=== PATIENT | male | born 1975 | race Asian ===

== ENCOUNTER 2022-01-06 14:40 | Inpatient (IN) | payer OTHER ==
[2022-01-06 16:01] VITALS: BMI 24.2
[2022-01-06] MEDS ORDERED: BENZOCAINE/MENTHOL (CHLORASEPTIC ) LOZENGE MM PRN (18:06)
[2022-01-06] MEDS ORDERED: chlordiazePOXIDE HCL 25 MG CAPSULE PO PRN (18:06)
[2022-01-06] MEDS ORDERED: BISMUTH SUBSALICYLATE 524 MG/30 ML PO PRN (18:06)
[2022-01-06] MEDS ORDERED: DICYCLOMINE HCL 10 MG CAPSULE PO PRN (18:06)
[2022-01-06] MEDS ORDERED: ACETAMINOPHEN 325 MG TABLET (FP) PO PRN ×2 (18:06)
[2022-01-06] MEDS ORDERED: MAG HYDROX/AL HYDROX/SIMETH 30 ML UNIT-DOSE CUP PO PRN (18:06)
[2022-01-06] MEDS ORDERED: NALOXONE HCL (KLOXXADO) 8 MG SPRAY NS PRN (18:06)
[2022-01-06] MEDS ORDERED: MAGNESIUM CITRATE 300 ML BOTTLE PO PRN (18:06)
[2022-01-06] MEDS ORDERED: IBUPROFEN 400 MG TABLET (FP) PO PRN (18:06)
[2022-01-06] MEDS ORDERED: MAGNESIUM HYDROX 2400MG/30ML ORAL SUSPENSION 30 ML CUP PO PRN (18:06)
[2022-01-06] MEDS ORDERED: LOPERAMIDE HCL 2 MG CAPSULE PO PRN (18:06)
[2022-01-06] MEDS ORDERED: ONDANSETRON *ODT* 4 MG TABLET SL PRN (18:06)
[2022-01-06] MEDS ORDERED: cloNIDine HCL 0.1 MG TABLET PO ONE (18:15)
[2022-01-06] MEDS ORDERED: cloNIDine HCL 0.1 MG TABLET ONE (18:35)
[2022-01-06] MEDS: THIAMINE HCL 100 MG TABLET (FP) PO SCH (22:28)
[2022-01-06] MEDS: MELATONIN 5 MG TABLETS PO SCH (22:28)
[2022-01-06] MEDS: chlordiazePOXIDE HCL 25 MG CAPSULE PO SCH (22:30)
[2022-01-07] MEDS: chlordiazePOXIDE HCL 25 MG CAPSULE PO SCH ×4 (05:19→22:11)
[2022-01-07] MEDS ORDERED: LABETALOL HCL 200 MG TABLET (FP) PO SCH (10:00)
[2022-01-07] MEDS: PRENATAL VITAMINS W/ FOLIC ACID TABLET (FP) PO SCH (10:14)
[2022-01-07] MEDS: METHOCARBAMOL 500 MG TABLET PO PRN ×2 (10:14→22:13)
[2022-01-07] MEDS: LABETALOL HCL 200 MG TABLET (FP) PO SCH ×2 (11:02→22:11)
[2022-01-07] MEDS ORDERED: LOPERAMIDE HCL 2 MG CAPSULE PO ONE (11:02)
[2022-01-07] MEDS: THIAMINE HCL 100 MG TABLET (FP) PO SCH (22:11)
[2022-01-07] MEDS: MELATONIN 5 MG TABLETS PO SCH (22:12)
[2022-01-08] MEDS: chlordiazePOXIDE HCL 25 MG CAPSULE PO SCH ×4 (05:11→22:03)
[2022-01-08] MEDS: PRENATAL VITAMINS W/ FOLIC ACID TABLET (FP) PO SCH (10:03)
[2022-01-08] MEDS: METHOCARBAMOL 500 MG TABLET PO PRN ×2 (10:07→22:12)
[2022-01-08] MEDS: IBUPROFEN 600 MG TABLET (FP) PO PRN (10:07)
[2022-01-08] MEDS: LABETALOL HCL 200 MG TABLET (FP) PO SCH ×2 (11:28→22:04)
[2022-01-08 12:19] LABS: CALCIUM 8.9 mg/dL (8.5-10.1)
[2022-01-08 12:20] LABS: ALBUMIN 3.7 g/dl (3.4-5.0); BLOOD UREA NITROGEN 13.6 mg/dL (7-18)
[2022-01-08 12:23] LABS: CREATININE 0.7 mg/dL (0.55-1.3); HEMATOCRIT 38.6 % (35.4-49); HEMOGLOBIN 12.8 GM/dL (11.7-16.9); MCH 30.7 pg (25.7-33.7); MCHC 33.1 g/dl (32.0-35.9); MEAN CELL VOLUME 92.7 fl (80-96); MEAN PLT VOLUME 8.5 fl (7.5-11.1); PLATELET COUNT 111 10^3/uL (134-434); RBC 4.17 M/mm3 (4.00-5.60); RDW 15.1 % (11.9-15.9); WHITE BLOOD COUNT 4.9 K/mm3 (4.0-10.0)
[2022-01-08 12:24] LABS: BILIRUBIN,TOTAL 0.5 mg/dL (0.2-1); TOT PROT 6.6 g/dl (6.4-8.2)
[2022-01-08] MEDS: THIAMINE HCL 100 MG TABLET (FP) PO SCH (22:01)
[2022-01-08] MEDS: MELATONIN 5 MG TABLETS PO SCH (22:04)
[2022-01-09] MEDS: METHOCARBAMOL 500 MG TABLET PO PRN (05:08)
[2022-01-09] MEDS: chlordiazePOXIDE HCL 10 MG CAPSULE PO SCH ×4 (05:08→22:05)
[2022-01-09] MEDS: PRENATAL VITAMINS W/ FOLIC ACID TABLET (FP) PO SCH (10:05)
[2022-01-09] MEDS: LABETALOL HCL 200 MG TABLET (FP) PO SCH ×2 (10:05→22:05)
[2022-01-09] MEDS: CYCLOBENZAPRINE HCL 10 MG TABLET (FP) PO PRN ×2 (10:08→16:43)
[2022-01-09] MEDS: FOLIC ACID 1 MG TABLET (FP) PO SCH (10:59)
[2022-01-09] MEDS: chlordiazePOXIDE HCL 10 MG CAPSULE PO PRN ×2 (14:00→19:12)
[2022-01-09] MEDS: THIAMINE HCL 100 MG TABLET (FP) PO SCH (22:05)
[2022-01-09] MEDS: MELATONIN 5 MG TABLETS PO SCH (22:06)
[2022-01-10] MEDS: chlordiazePOXIDE HCL 10 MG CAPSULE PO SCH ×2 (05:23→17:21)
[2022-01-10] MEDS: FOLIC ACID 1 MG TABLET (FP) PO SCH (10:13)
[2022-01-10] MEDS: LABETALOL HCL 200 MG TABLET (FP) PO SCH ×2 (10:13→21:00)
[2022-01-10] MEDS: PRENATAL VITAMINS W/ FOLIC ACID TABLET (FP) PO SCH (10:13)
[2022-01-10] MEDS: CYCLOBENZAPRINE HCL 10 MG TABLET (FP) PO PRN ×2 (10:14→21:53)
[2022-01-10] MEDS: IBUPROFEN 600 MG TABLET (FP) PO PRN (10:15)
[2022-01-10] MEDS: MELATONIN 5 MG TABLETS PO SCH (21:53)
[2022-01-10] MEDS: THIAMINE HCL 100 MG TABLET (FP) PO SCH (21:53)
[2022-01-11] MEDS ORDERED: chlordiazePOXIDE HCL 10 MG CAPSULE PO ONE (05:00)
[2022-01-11 05:59] VITALS: RESP 18
[2022-01-11 08:54] VITALS: BP 138/94; PULSE 85; TEMP 96.9
[2022-01-11] MEDS: PRENATAL VITAMINS W/ FOLIC ACID TABLET (FP) PO SCH (10:08)
[2022-01-11] MEDS: CYCLOBENZAPRINE HCL 10 MG TABLET (FP) PO PRN (10:09)
[2022-01-11] MEDS: FOLIC ACID 1 MG TABLET (FP) PO SCH (10:09)
[2022-01-11] MEDS: LABETALOL HCL 200 MG TABLET (FP) PO SCH (10:09)
== END 2022-01-11 11:41 | disposition other institution (70) | DRG 775 ==
LOC: YASAS 14:40 → Y6N 18:49
PROVIDERS: ADMIT Allergy & Immunology; ATTEND Surgery
PROC: HZ2ZZZZ Detoxification Services for Substance Abuse Treatment (ICD-10-PCS; principal; 2022-01-06)
DX: F10.230 Alcohol dependence with withdrawal, uncomplicated (principal); I10 Essential (primary) hypertension; M54.50 Low back pain, unspecified; G89.29 Other chronic pain
CPT/HCPCS: 36415; 80053; 85027; 86780; 93005; 93010; C9803-CS; U0003; U0005

== ENCOUNTER 2022-01-11 11:52 | Inpatient (IN) | payer OTHER ==
[2022-01-11] MEDS ORDERED: MAGNESIUM CITRATE 300 ML BOTTLE PO PRN (13:25)
[2022-01-11] MEDS ORDERED: P-EPHED 60MG/TRIPROLIDI 2.5MG TABLET PO PRN (13:25)
[2022-01-11] MEDS ORDERED: NICOTINE 10 MG CARTRIDGE (INHALER) IH PRN (13:25)
[2022-01-11] MEDS ORDERED: MAGNESIUM HYDROX 2400MG/30ML ORAL SUSPENSION 30 ML CUP PO PRN (13:25)
[2022-01-11] MEDS ORDERED: guaiFENesin 200 MG/10 ML 10 ML UNIT-DOSE CUPS PO PRN (13:25)
[2022-01-11] MEDS ORDERED: ACETAMINOPHEN 325 MG TABLET (FP) PO PRN (13:25)
[2022-01-11] MEDS ORDERED: LOPERAMIDE HCL 2 MG CAPSULE PO PRN (13:25)
[2022-01-11] MEDS ORDERED: NICOTINE POLACRILEX 2 MG GUM BC PRN (13:25)
[2022-01-11] MEDS ORDERED: NICOTINE 7 MG/24 HOURS TOPICAL PATCH TD PRN (13:25)
[2022-01-11] MEDS ORDERED: MAG HYDROX/AL HYDROX/SIMETH 30 ML UNIT-DOSE CUP PO PRN (13:25)
[2022-01-11] MEDS: MELATONIN 5 MG TABLETS PO SCH (21:19)
[2022-01-11] MEDS: THIAMINE HCL 100 MG TABLET (FP) PO SCH (21:19)
[2022-01-11] MEDS: LABETALOL HCL 200 MG TABLET (FP) PO SCH (21:19)
[2022-01-11] MEDS: CYCLOBENZAPRINE HCL 10 MG TABLET (FP) PO PRN (21:19)
[2022-01-12] MEDS: hydrOXYzine PAMOATE 25 MG CAPSULE (FP) PO PRN (06:28)
[2022-01-12] MEDS: IBUPROFEN 400 MG TABLET (FP) PO PRN ×2 (06:28→21:22)
[2022-01-12] MEDS: LABETALOL HCL 200 MG TABLET (FP) PO SCH ×2 (09:50→23:45)
[2022-01-12] MEDS: PRENATAL VITAMINS W/ FOLIC ACID TABLET (FP) PO SCH (09:50)
[2022-01-12] MEDS: MELATONIN 5 MG TABLETS PO SCH (21:21)
[2022-01-12] MEDS: THIAMINE HCL 100 MG TABLET (FP) PO SCH (21:21)
[2022-01-12] MEDS: CYCLOBENZAPRINE HCL 10 MG TABLET (FP) PO PRN (21:22)
[2022-01-13] MEDS: LABETALOL HCL 200 MG TABLET (FP) PO SCH ×2 (10:08→21:22)
[2022-01-13] MEDS: PRENATAL VITAMINS W/ FOLIC ACID TABLET (FP) PO SCH (10:08)
[2022-01-13] MEDS: THIAMINE HCL 100 MG TABLET (FP) PO SCH (21:22)
[2022-01-13] MEDS: MELATONIN 5 MG TABLETS PO SCH (21:22)
[2022-01-14] MEDS: IBUPROFEN 400 MG TABLET (FP) PO PRN (06:15)
[2022-01-14] MEDS: CYCLOBENZAPRINE HCL 10 MG TABLET (FP) PO PRN ×2 (06:16→21:17)
[2022-01-14] MEDS: LABETALOL HCL 200 MG TABLET (FP) PO SCH ×2 (09:31→21:16)
[2022-01-14] MEDS: PRENATAL VITAMINS W/ FOLIC ACID TABLET (FP) PO SCH (09:31)
[2022-01-14] MEDS: MELATONIN 5 MG TABLETS PO SCH (21:16)
[2022-01-14] MEDS: THIAMINE HCL 100 MG TABLET (FP) PO SCH (21:16)
[2022-01-15] MEDS: IBUPROFEN 400 MG TABLET (FP) PO PRN (06:25)
[2022-01-15] MEDS: hydrOXYzine PAMOATE 25 MG CAPSULE (FP) PO PRN ×2 (06:26→23:20)
[2022-01-15] MEDS: PRENATAL VITAMINS W/ FOLIC ACID TABLET (FP) PO SCH (09:50)
[2022-01-15] MEDS: LABETALOL HCL 200 MG TABLET (FP) PO SCH ×2 (09:50→21:09)
[2022-01-15] MEDS: THIAMINE HCL 100 MG TABLET (FP) PO SCH (21:09)
[2022-01-15] MEDS: CYCLOBENZAPRINE HCL 10 MG TABLET (FP) PO PRN (21:09)
[2022-01-15] MEDS: MELATONIN 5 MG TABLETS PO SCH (21:09)
[2022-01-15] MEDS ORDERED: cloNIDine HCL 0.1 MG TABLET PO ONE (23:14)
[2022-01-16] MEDS: IBUPROFEN 400 MG TABLET (FP) PO PRN ×2 (06:19→21:22)
[2022-01-16] MEDS: hydrOXYzine PAMOATE 25 MG CAPSULE (FP) PO PRN ×2 (06:19→21:22)
[2022-01-16] MEDS: PRENATAL VITAMINS W/ FOLIC ACID TABLET (FP) PO SCH (09:57)
[2022-01-16] MEDS: LABETALOL HCL 200 MG TABLET (FP) PO SCH ×2 (09:58→21:21)
[2022-01-16] MEDS: CYCLOBENZAPRINE HCL 10 MG TABLET (FP) PO PRN ×2 (09:59→21:21)
[2022-01-16] MEDS: MELATONIN 5 MG TABLETS PO SCH (21:20)
[2022-01-16] MEDS: THIAMINE HCL 100 MG TABLET (FP) PO SCH (21:20)
[2022-01-17] MEDS: PRENATAL VITAMINS W/ FOLIC ACID TABLET (FP) PO SCH (10:17)
[2022-01-17] MEDS: LABETALOL HCL 200 MG TABLET (FP) PO SCH ×2 (10:17→21:07)
[2022-01-17] MEDS: IBUPROFEN 400 MG TABLET (FP) PO PRN (10:18)
[2022-01-17] MEDS: CYCLOBENZAPRINE HCL 10 MG TABLET (FP) PO PRN (21:07)
[2022-01-17] MEDS: MELATONIN 5 MG TABLETS PO SCH (21:07)
[2022-01-17] MEDS: THIAMINE HCL 100 MG TABLET (FP) PO SCH (21:07)
[2022-01-18] MEDS: hydrOXYzine PAMOATE 25 MG CAPSULE (FP) PO PRN (06:21)
[2022-01-18] MEDS: LABETALOL HCL 200 MG TABLET (FP) PO SCH ×2 (09:43→21:15)
[2022-01-18] MEDS: PRENATAL VITAMINS W/ FOLIC ACID TABLET (FP) PO SCH (09:43)
[2022-01-18] MEDS: IBUPROFEN 400 MG TABLET (FP) PO PRN (09:44)
[2022-01-18] MEDS ORDERED: IBUPROFEN 400 MG TABLET (FP) PO PRN (15:07)
[2022-01-18] MEDS: MELATONIN 5 MG TABLETS PO SCH (21:16)
[2022-01-18] MEDS: CYCLOBENZAPRINE HCL 10 MG TABLET (FP) PO PRN (21:16)
[2022-01-18] MEDS: THIAMINE HCL 100 MG TABLET (FP) PO SCH (21:16)
[2022-01-19] MEDS: IBUPROFEN 400 MG TABLET (FP) PO PRN (06:41)
[2022-01-19] MEDS: hydrOXYzine PAMOATE 25 MG CAPSULE (FP) PO PRN (06:42)
[2022-01-19] MEDS: PRENATAL VITAMINS W/ FOLIC ACID TABLET (FP) PO SCH (10:02)
[2022-01-19] MEDS: LABETALOL HCL 200 MG TABLET (FP) PO SCH ×2 (10:02→21:07)
[2022-01-19] MEDS: CYCLOBENZAPRINE HCL 10 MG TABLET (FP) PO PRN (21:07)
[2022-01-19] MEDS: MELATONIN 5 MG TABLETS PO SCH (21:07)
[2022-01-19] MEDS: THIAMINE HCL 100 MG TABLET (FP) PO SCH (21:07)
[2022-01-20] MEDS: PRENATAL VITAMINS W/ FOLIC ACID TABLET (FP) PO SCH (09:56)
[2022-01-20] MEDS: LABETALOL HCL 200 MG TABLET (FP) PO SCH ×2 (09:56→21:18)
[2022-01-20] MEDS: IBUPROFEN 400 MG TABLET (FP) PO PRN (09:57)
[2022-01-20] MEDS: MELATONIN 5 MG TABLETS PO SCH (21:17)
[2022-01-20] MEDS: THIAMINE HCL 100 MG TABLET (FP) PO SCH (21:17)
[2022-01-20] MEDS: CYCLOBENZAPRINE HCL 10 MG TABLET (FP) PO PRN (21:18)
[2022-01-21] MEDS: PRENATAL VITAMINS W/ FOLIC ACID TABLET (FP) PO SCH (09:35)
[2022-01-21] MEDS: LABETALOL HCL 200 MG TABLET (FP) PO SCH ×2 (09:36→21:20)
[2022-01-21] MEDS: IBUPROFEN 400 MG TABLET (FP) PO PRN ×2 (09:37→21:20)
[2022-01-21] MEDS: THIAMINE HCL 100 MG TABLET (FP) PO SCH (21:19)
[2022-01-21] MEDS: CYCLOBENZAPRINE HCL 10 MG TABLET (FP) PO PRN (21:19)
[2022-01-21] MEDS: MELATONIN 5 MG TABLETS PO SCH (21:19)
[2022-01-22] MEDS: hydrOXYzine PAMOATE 25 MG CAPSULE (FP) PO PRN (06:19)
[2022-01-22] MEDS: LABETALOL HCL 200 MG TABLET (FP) PO SCH ×2 (10:25→21:20)
[2022-01-22] MEDS: PRENATAL VITAMINS W/ FOLIC ACID TABLET (FP) PO SCH (10:25)
[2022-01-22] MEDS: IBUPROFEN 400 MG TABLET (FP) PO PRN ×2 (10:26→21:21)
[2022-01-22] MEDS: MELATONIN 5 MG TABLETS PO SCH (21:20)
[2022-01-22] MEDS: CYCLOBENZAPRINE HCL 10 MG TABLET (FP) PO PRN (21:20)
[2022-01-22] MEDS: THIAMINE HCL 100 MG TABLET (FP) PO SCH (21:20)
[2022-01-23] MEDS: LABETALOL HCL 200 MG TABLET (FP) PO SCH ×2 (10:07→21:05)
[2022-01-23] MEDS: PRENATAL VITAMINS W/ FOLIC ACID TABLET (FP) PO SCH (10:07)
[2022-01-23] MEDS: IBUPROFEN 400 MG TABLET (FP) PO PRN ×2 (10:08→21:05)
[2022-01-23] MEDS: THIAMINE HCL 100 MG TABLET (FP) PO SCH (21:05)
[2022-01-23] MEDS: CYCLOBENZAPRINE HCL 10 MG TABLET (FP) PO PRN (21:05)
[2022-01-23] MEDS: MELATONIN 5 MG TABLETS PO SCH (21:05)
[2022-01-24] MEDS: PRENATAL VITAMINS W/ FOLIC ACID TABLET (FP) PO SCH (10:07)
[2022-01-24] MEDS: IBUPROFEN 400 MG TABLET (FP) PO PRN (10:07)
[2022-01-24] MEDS: LABETALOL HCL 200 MG TABLET (FP) PO SCH (10:07)
[2022-01-24] MEDS: CYCLOBENZAPRINE HCL 10 MG TABLET (FP) PO PRN ×2 (10:09→21:07)
[2022-01-24] MEDS: hydrOXYzine PAMOATE 25 MG CAPSULE (FP) PO PRN (10:09)
[2022-01-24] MEDS: MELATONIN 5 MG TABLETS PO SCH (21:07)
[2022-01-24] MEDS: THIAMINE HCL 100 MG TABLET (FP) PO SCH (21:07)
[2022-01-24] MEDS: LABETALOL HCL 100 MG TABLET (FP) PO SCH (21:07)
[2022-01-25] MEDS: hydrOXYzine PAMOATE 25 MG CAPSULE (FP) PO PRN (06:06)
[2022-01-25] MEDS: PRENATAL VITAMINS W/ FOLIC ACID TABLET (FP) PO SCH (10:06)
[2022-01-25] MEDS: LABETALOL HCL 200 MG TABLET (FP) PO SCH (10:07)
[2022-01-25] MEDS: IBUPROFEN 400 MG TABLET (FP) PO PRN ×2 (10:08→21:06)
[2022-01-25] MEDS: CYCLOBENZAPRINE HCL 10 MG TABLET (FP) PO PRN ×2 (10:08→21:06)
[2022-01-25] MEDS: LABETALOL HCL 100 MG TABLET (FP) PO SCH (21:06)
[2022-01-25] MEDS: MELATONIN 5 MG TABLETS PO SCH (21:06)
[2022-01-25] MEDS: THIAMINE HCL 100 MG TABLET (FP) PO SCH (21:06)
[2022-01-26] MEDS: IBUPROFEN 400 MG TABLET (FP) PO PRN ×2 (06:27→21:06)
[2022-01-26] MEDS: hydrOXYzine PAMOATE 25 MG CAPSULE (FP) PO PRN ×3 (06:27→21:06)
[2022-01-26] MEDS: CYCLOBENZAPRINE HCL 10 MG TABLET (FP) PO PRN ×2 (09:36→21:06)
[2022-01-26] MEDS: LABETALOL HCL 200 MG TABLET (FP) PO SCH (09:36)
[2022-01-26] MEDS: PRENATAL VITAMINS W/ FOLIC ACID TABLET (FP) PO SCH (09:37)
[2022-01-26] MEDS: LABETALOL HCL 100 MG TABLET (FP) PO SCH (21:06)
[2022-01-26] MEDS: MELATONIN 5 MG TABLETS PO SCH (21:06)
[2022-01-26] MEDS: THIAMINE HCL 100 MG TABLET (FP) PO SCH (21:24)
[2022-01-27] MEDS: PRENATAL VITAMINS W/ FOLIC ACID TABLET (FP) PO SCH (10:07)
[2022-01-27] MEDS: LABETALOL HCL 200 MG TABLET (FP) PO SCH (10:08)
[2022-01-27] MEDS: IBUPROFEN 400 MG TABLET (FP) PO PRN ×2 (10:09→21:10)
[2022-01-27] MEDS: hydrOXYzine PAMOATE 25 MG CAPSULE (FP) PO PRN (10:09)
[2022-01-27] MEDS: LABETALOL HCL 100 MG TABLET (FP) PO SCH (21:10)
[2022-01-27] MEDS: THIAMINE HCL 100 MG TABLET (FP) PO SCH (21:11)
[2022-01-27] MEDS: MELATONIN 5 MG TABLETS PO SCH (21:11)
[2022-01-28] MEDS: PRENATAL VITAMINS W/ FOLIC ACID TABLET (FP) PO SCH (09:47)
[2022-01-28] MEDS: LABETALOL HCL 200 MG TABLET (FP) PO SCH (09:48)
[2022-01-28] MEDS: IBUPROFEN 400 MG TABLET (FP) PO PRN ×2 (09:48→21:05)
[2022-01-28] MEDS: CYCLOBENZAPRINE HCL 10 MG TABLET (FP) PO PRN ×2 (09:49→21:05)
[2022-01-28] MEDS: LABETALOL HCL 100 MG TABLET (FP) PO SCH (21:04)
[2022-01-28] MEDS: THIAMINE HCL 100 MG TABLET (FP) PO SCH (21:05)
[2022-01-28] MEDS: MELATONIN 5 MG TABLETS PO SCH (21:05)
[2022-01-29] MEDS: IBUPROFEN 400 MG TABLET (FP) PO PRN (06:13)
[2022-01-29] MEDS: hydrOXYzine PAMOATE 25 MG CAPSULE (FP) PO PRN (06:13)
[2022-01-29] MEDS: CYCLOBENZAPRINE HCL 10 MG TABLET (FP) PO PRN ×2 (09:29→21:03)
[2022-01-29] MEDS: LABETALOL HCL 200 MG TABLET (FP) PO SCH (09:29)
[2022-01-29] MEDS: PRENATAL VITAMINS W/ FOLIC ACID TABLET (FP) PO SCH (09:29)
[2022-01-29] MEDS: GABAPENTIN 100 MG CAPSULE PO SCH ×2 (13:26→21:03)
[2022-01-29] MEDS: MELATONIN 5 MG TABLETS PO SCH (21:03)
[2022-01-29] MEDS: THIAMINE HCL 100 MG TABLET (FP) PO SCH (21:03)
[2022-01-29] MEDS: LABETALOL HCL 100 MG TABLET (FP) PO SCH (21:05)
[2022-01-30] MEDS: GABAPENTIN 100 MG CAPSULE PO SCH ×3 (06:20→21:09)
[2022-01-30] MEDS: hydrOXYzine PAMOATE 25 MG CAPSULE (FP) PO PRN ×2 (06:20→21:09)
[2022-01-30] MEDS: LABETALOL HCL 200 MG TABLET (FP) PO SCH (10:08)
[2022-01-30] MEDS: PRENATAL VITAMINS W/ FOLIC ACID TABLET (FP) PO SCH (10:08)
[2022-01-30] MEDS: CYCLOBENZAPRINE HCL 10 MG TABLET (FP) PO PRN ×2 (10:09→21:09)
[2022-01-30] MEDS: IBUPROFEN 400 MG TABLET (FP) PO PRN ×2 (10:09→21:09)
[2022-01-30] MEDS: LABETALOL HCL 100 MG TABLET (FP) PO SCH (21:08)
[2022-01-30] MEDS: MELATONIN 5 MG TABLETS PO SCH (21:08)
[2022-01-30] MEDS: THIAMINE HCL 100 MG TABLET (FP) PO SCH (21:08)
[2022-01-31] MEDS: GABAPENTIN 100 MG CAPSULE PO SCH ×3 (06:08→21:03)
[2022-01-31] MEDS: IBUPROFEN 400 MG TABLET (FP) PO PRN ×3 (06:08→21:03)
[2022-01-31] MEDS: hydrOXYzine PAMOATE 25 MG CAPSULE (FP) PO PRN ×2 (06:09→21:03)
[2022-01-31] MEDS: PRENATAL VITAMINS W/ FOLIC ACID TABLET (FP) PO SCH (10:01)
[2022-01-31] MEDS: LABETALOL HCL 200 MG TABLET (FP) PO SCH (10:01)
[2022-01-31] MEDS: CYCLOBENZAPRINE HCL 10 MG TABLET (FP) PO PRN ×2 (10:02→21:03)
[2022-01-31] MEDS: MELATONIN 5 MG TABLETS PO SCH (21:03)
[2022-01-31] MEDS: LABETALOL HCL 100 MG TABLET (FP) PO SCH (21:03)
[2022-01-31] MEDS: THIAMINE HCL 100 MG TABLET (FP) PO SCH (21:03)
[2022-02-01] MEDS: IBUPROFEN 400 MG TABLET (FP) PO PRN (05:48)
[2022-02-01] MEDS: hydrOXYzine PAMOATE 25 MG CAPSULE (FP) PO PRN (05:48)
[2022-02-01] MEDS: GABAPENTIN 100 MG CAPSULE PO SCH ×3 (05:48→21:10)
[2022-02-01] MEDS: LABETALOL HCL 200 MG TABLET (FP) PO SCH (09:58)
[2022-02-01] MEDS: PRENATAL VITAMINS W/ FOLIC ACID TABLET (FP) PO SCH (09:58)
[2022-02-01] MEDS: CYCLOBENZAPRINE HCL 10 MG TABLET (FP) PO PRN ×2 (10:00→21:10)
[2022-02-01] MEDS: MELATONIN 5 MG TABLETS PO SCH (21:10)
[2022-02-01] MEDS: THIAMINE HCL 100 MG TABLET (FP) PO SCH (21:10)
[2022-02-01] MEDS: LABETALOL HCL 100 MG TABLET (FP) PO SCH (21:10)
[2022-02-02] MEDS: hydrOXYzine PAMOATE 25 MG CAPSULE (FP) PO PRN (06:03)
[2022-02-02] MEDS: GABAPENTIN 100 MG CAPSULE PO SCH ×3 (06:03→21:16)
[2022-02-02] MEDS: IBUPROFEN 400 MG TABLET (FP) PO PRN ×2 (06:03→21:18)
[2022-02-02] MEDS: LABETALOL HCL 200 MG TABLET (FP) PO SCH (09:32)
[2022-02-02] MEDS: PRENATAL VITAMINS W/ FOLIC ACID TABLET (FP) PO SCH (09:32)
[2022-02-02] MEDS: CYCLOBENZAPRINE HCL 10 MG TABLET (FP) PO PRN ×2 (09:33→21:16)
[2022-02-02] MEDS: MELATONIN 5 MG TABLETS PO SCH (21:17)
[2022-02-02] MEDS: THIAMINE HCL 100 MG TABLET (FP) PO SCH (21:17)
[2022-02-02] MEDS: LABETALOL HCL 100 MG TABLET (FP) PO SCH (21:17)
[2022-02-03] MEDS: hydrOXYzine PAMOATE 25 MG CAPSULE (FP) PO PRN (06:25)
[2022-02-03] MEDS: GABAPENTIN 100 MG CAPSULE PO SCH ×3 (06:25→21:12)
[2022-02-03] MEDS: IBUPROFEN 400 MG TABLET (FP) PO PRN (06:26)
[2022-02-03] MEDS: PRENATAL VITAMINS W/ FOLIC ACID TABLET (FP) PO SCH (09:32)
[2022-02-03] MEDS: LABETALOL HCL 200 MG TABLET (FP) PO SCH (09:32)
[2022-02-03] MEDS: CYCLOBENZAPRINE HCL 10 MG TABLET (FP) PO PRN ×2 (09:33→21:12)
[2022-02-03] MEDS: ARTIFICIAL TEARS (POLYVINYL ALCOHOL) OPTH DROPS OD PRN ×2 (13:46→21:13)
[2022-02-03] MEDS: LABETALOL HCL 100 MG TABLET (FP) PO SCH (21:12)
[2022-02-03] MEDS: THIAMINE HCL 100 MG TABLET (FP) PO SCH (21:12)
[2022-02-03] MEDS: MELATONIN 5 MG TABLETS PO SCH (21:12)
[2022-02-04] MEDS: GABAPENTIN 100 MG CAPSULE PO SCH ×3 (06:00→21:08)
[2022-02-04] MEDS: hydrOXYzine PAMOATE 25 MG CAPSULE (FP) PO PRN (06:00)
[2022-02-04] MEDS: IBUPROFEN 400 MG TABLET (FP) PO PRN ×2 (06:00→09:40)
[2022-02-04] MEDS: PRENATAL VITAMINS W/ FOLIC ACID TABLET (FP) PO SCH (09:40)
[2022-02-04] MEDS: ARTIFICIAL TEARS (POLYVINYL ALCOHOL) OPTH DROPS OD PRN ×2 (09:41→21:09)
[2022-02-04] MEDS: LABETALOL HCL 200 MG TABLET (FP) PO SCH (09:42)
[2022-02-04] MEDS: CYCLOBENZAPRINE HCL 10 MG TABLET (FP) PO PRN (21:08)
[2022-02-04] MEDS: THIAMINE HCL 100 MG TABLET (FP) PO SCH (21:08)
[2022-02-04] MEDS: LABETALOL HCL 100 MG TABLET (FP) PO SCH (21:08)
[2022-02-04] MEDS: MELATONIN 5 MG TABLETS PO SCH (21:08)
[2022-02-05] MEDS: hydrOXYzine PAMOATE 25 MG CAPSULE (FP) PO PRN (06:51)
[2022-02-05] MEDS: IBUPROFEN 400 MG TABLET (FP) PO PRN ×2 (06:51→21:42)
[2022-02-05] MEDS: GABAPENTIN 100 MG CAPSULE PO SCH ×3 (06:51→21:43)
[2022-02-05] MEDS: LABETALOL HCL 200 MG TABLET (FP) PO SCH (10:03)
[2022-02-05] MEDS: PRENATAL VITAMINS W/ FOLIC ACID TABLET (FP) PO SCH (10:03)
[2022-02-05] MEDS: CYCLOBENZAPRINE HCL 10 MG TABLET (FP) PO PRN ×2 (10:04→21:43)
[2022-02-05] MEDS: THIAMINE HCL 100 MG TABLET (FP) PO SCH (21:42)
[2022-02-05] MEDS: MELATONIN 5 MG TABLETS PO SCH (21:42)
[2022-02-05] MEDS: LABETALOL HCL 100 MG TABLET (FP) PO SCH (21:42)
[2022-02-06] MEDS: GABAPENTIN 100 MG CAPSULE PO SCH ×3 (06:13→21:02)
[2022-02-06 06:50] VITALS: RESP 18
[2022-02-06] MEDS: IBUPROFEN 400 MG TABLET (FP) PO PRN ×2 (09:35→21:03)
[2022-02-06] MEDS: LABETALOL HCL 200 MG TABLET (FP) PO SCH (09:35)
[2022-02-06] MEDS: PRENATAL VITAMINS W/ FOLIC ACID TABLET (FP) PO SCH (09:35)
[2022-02-06] MEDS: MELATONIN 5 MG TABLETS PO SCH (21:02)
[2022-02-06] MEDS: LABETALOL HCL 100 MG TABLET (FP) PO SCH (21:02)
[2022-02-06] MEDS: CYCLOBENZAPRINE HCL 10 MG TABLET (FP) PO PRN (21:03)
[2022-02-06] MEDS: THIAMINE HCL 100 MG TABLET (FP) PO SCH (21:36)
[2022-02-07] MEDS: GABAPENTIN 100 MG CAPSULE PO SCH (06:24)
[2022-02-07] MEDS: IBUPROFEN 400 MG TABLET (FP) PO PRN (06:24)
[2022-02-07] MEDS: hydrOXYzine PAMOATE 25 MG CAPSULE (FP) PO PRN (06:24)
[2022-02-07 06:53] VITALS: BP 145/99; PULSE 73; TEMP 97.8
[2022-02-07] MEDS: LABETALOL HCL 200 MG TABLET (FP) PO SCH (09:06)
[2022-02-07] MEDS: PRENATAL VITAMINS W/ FOLIC ACID TABLET (FP) PO SCH (09:06)
[2022-02-07] MEDS: CYCLOBENZAPRINE HCL 10 MG TABLET (FP) PO PRN (09:07)
== END 2022-02-07 09:22 | disposition home or self-care (01) | DRG 772 ==
LOC: YASAS 11:52 → Y3W 11:53
PROVIDERS: ADMIT Allergy & Immunology; ATTEND Psychiatry & Neurology Pain Medicine
PROC: HZ42ZZZ Group Counseling for Substance Abuse Treatment, Cognitive-Behavioral (ICD-10-PCS; principal; 2022-01-11)
PROC: HZ42ZZZ Group Counseling for Substance Abuse Treatment, Cognitive-Behavioral (ICD-10-PCS; 2022-01-11)
DX: F10.20 Alcohol dependence, uncomplicated (principal); I10 Essential (primary) hypertension; M54.50 Low back pain, unspecified; G89.29 Other chronic pain; H11.431 Conjunctival hyperemia, right eye; R20.2 Paresthesia of skin; Z86.73 Personal history of transient ischemic attack (TIA), and cerebral infarction without residual deficits; Z59.00 Homelessness unspecified; Z56.0 Unemployment, unspecified; Z89.021 Acquired absence of right finger(s)
CPT/HCPCS: 36415; 82746